=== PATIENT | female | born 1990 | race Hispanic/Latino ===

== ENCOUNTER 2017-09-06 12:25 | Day surgery (SDC) | payer OTHER ==
[2017-09-06 13:06] VITALS: BMI 30.5
[2017-09-06 13:44] LABS: Bilirubin Negative (Negative); Blood, Urine Trace (Negative); Glucose, Urine (Dipstick) Negative (Negative); Ketone, Urine Negative (Negative); Nitrite Negative (Negative); Protein, Urine (Dipstick) Negative (Neg-Trace); Urobilinogen 0.2 mg/dL (0.2-1.0)
[2017-09-06 13:50] LABS: Bacteria/HPF None Seen HPF (None Seen); Hyaline Casts/LPF 0-3 HYALINE CAST LPF (0-3 Hyaline); Squamous Epithelial None Seen HPF (0-3); WBC/HPF None Seen HPF (0-3)
--- NOTE | 2017-09-06 14:39 | PRG ---
DATE OF SERVICE: 09/06/2017 FOLLOWUP DICTATION In brief, the patient had a urinalysis submitted which has now returned. There is no evidence of UT I based on that evaluation. Therefore, we will discharge the patient home to have her follow up wit bianca Thomas as scheduled tomorrow. Once again, there is no evidence of UTI on the catheterized urin alysis which was collected.
--- NOTE | 2017-09-06 15:24 | PRG ---
DATE OF SERVICE: 09/06/2017 TIME OF EVALUATION: 13:35. TIME OF DICTATION: 13:44. LOCATION: Labor and Delivery triage in bed B. This is a patient of Dr. Thomas. REASON FOR EVALUATION: Lower pelvic pressure and discomfort at 33 weeks and 6 days. HISTORY OF PRESENT ILLNESS: In brief, this is a 27-year-old G2, P0, elective AB 1 who is a t 33 weeks and 6 days by LMP of 10/19/2017. EDC of 10/19/2017. She arrives with a complaint of low er suprapubic pressure, but denies any true dysuria. She has no GI issues. She has no frequency or dysuria. She has no recent trauma and no vaginal bleeding. She has not had recent intercourse as well. She denies any recent STI or any other febrile illness. REVIEW OF SYSTEMS: Complete review of systems was done and is otherwise negative unless specified i n the HPI. PAST MEDICAL HISTORY: Negative. ALLERGIES: None. PAST SURGICAL HISTORY: Noncontributory. MEDICATIONS: vitamins. PHYSICAL EXAMINATION: VITAL SIGNS: Blood pressure 118/80, heart rate 72, and temperature at 98.2. GENERAL: She is in no acute distress. ABDOMEN: Soft and nontender. There is no evidence of vaginal bleeding or rupture of membranes on e xam clinically. I performed a cervical digital examination, I find her cervix to be closed, 20% eff aced, -3 station. The cervix is posterior. There are no vulvovaginal lesions. ON EXTERNAL MONITOR/NONSTRESS TEST: heart tones are in the 130s-140s with moderate vari ability and acelerations. There are no contractions on tocodynamometer. The heart rate sary ng is reassuring. INTERVENTIONS ORDERED: I have ordered a catheterized urinalysis to rule out occult or overt UTI. ASSESSMENT: This is a G2, P1 at 33 weeks and 6 days with lower pelvic pressure. Not compatible wit h labor. PLAN: 1. Cath UA pending. 2. If UA shows evidence of UTI/bacteriuria, we will treat as an outpatient. 3. If the urinalysis is clear, diagnosis will be discomforts of . 4. There is no current evidence of labor based on physical exam, tocodynamometer reading, a nd cervical exam. 5. The patient has a followup appointment with Dr. Thomas tomorrow dated 09/07/2017.
== END 2017-09-06 14:00 | disposition home or self-care (01) ==
LOC: L&D/OP 12:25
PROVIDERS: ATTEND Family Medicine
DX: O99.89 Other specified diseases and conditions complicating pregnancy, childbirth and the puerperium (principal); R10.2 Pelvic and perineal pain; Z3A.33 33 weeks gestation of pregnancy; Z79.899 Other long term (current) drug therapy
CPT/HCPCS: 81003; 81015

== ENCOUNTER 2022-09-11 17:08 | Emergency (ER) | payer OTHER, SELFPAY ==
[2022-09-11 17:38] LABS: #Eosinphils 0.5 thou/uL (0.0-0.7); #Lymphocytes 2.2 thou/uL (1.20-3.40); #Monocytes 0.9 thou/uL (0.11-0.59); #Neutrophils 5.7 thou/uL (1.40-6.50); %Basophils 0.3 % (0.0-1.0); %Eosinophils 5.8 % (0.0-10.0); %Lymphocytes 23.7 % (21.0-51.0); %Monocytes 9.3 % (0.0-10.0); %Neutrophils 60.9 % (42.0-75.0); Hemoglobin 13.5 g/dL (12.0-16.0); Mean Corpuscular HGB CONC 33.3 g/dL (32.0-36.0); Mean Corpuscular Hemoglobin 28.9 pg (27.0-31.0); Mean Corpuscular Volume 86.8 fL (78.0-98.0); Mean Platelet Volume 7.5 fL (7.4-10.4); Platelet Count 305 thou/uL (130-400); RBC Distribution Width 11.9 % (11.5-14.5); Red Blood Cell (RBC) Count 4.65 mill/uL (4.20-5.40); White Blood Cell (WBC) Count 9.3 thou/uL (4.8-10.8)
[2022-09-11 17:49] LABS: BHCG - Serum Negative (NEGATIVE); Pregs Control Background? CLEAR/WHITE (CLR/WHITE); Pregs Control Bar Appear? YES (CONTROL BAR)
[2022-09-11 17:59] LABS: ALT (SGPT) 16 U/L (8-55); AST (SGOT) 12 U/L (5-34); Albumin 4.1 g/dL (3.5-5.0); Alkaline Phosphatase 61 U/L (40-110); Anion Gap 10 mmol/L (10-20); BUN (Urea Nitrogen) 15 mg/dL (7.0-18.7); Bilirubin, Total 0.4 mg/dL (0.2-1.2); Calc. Creatinine Clearance 0 mL/min (70-130); Carbon Dioxide 25 mmol/L (22-29); Chloride 106 mmol/L (98-107); Estimated GFR 121; Globulin 3.5 g/dL (2.4-3.5); Glucose 86 mg/dL (70-105); Potassium 4.3 mmol/L (3.5-5.1); Protein, Total 7.6 g/dL (6.0-8.3); Sodium 137 mmol/L (136-145)
[2022-09-11 18:48] LABS: Bilirubin Negative (Negative); Blood, Urine Negative (Negative); Clarity Clear (Clear); Glucose, Urine (Dipstick) Normal (Negative); Ketone, Urine Negative (Negative); Leukocyte Negative Leu/uL (Negative); Nitrite Negative (Negative); Protein, Urine (Dipstick) 10 mg/dL (Neg-Trace); Urobilinogen Normal mg/dL (Less than 2)
== END 2022-09-11 20:01 | disposition home or self-care (01) ==
LOC: ERS 17:08
DX: J20.9 Acute bronchitis, unspecified (principal)
CPT/HCPCS: 36415; 71045; 80053; 81003; 84484; 84703; 85025; 93005

== ENCOUNTER 2024-05-28 01:59 | Emergency (ER) | payer OTHER, SELFPAY ==
[2024-05-28] MEDS ORDERED: Proparacaine 0.5% Opth 15 ML BOT ONE (02:38)
[2024-05-28] MEDS ORDERED: Fluorescein Opthalmic Strip ONE (02:39)
== END 2024-05-28 03:55 | disposition home or self-care (01) ==
LOC: ERS 01:59
DX: H57.89 Other specified disorders of eye and adnexa (principal); H02.841 Edema of right upper eyelid
CPT/HCPCS: 99283